=== PATIENT | female | born 1975 | race Caucasian/White ===

== ENCOUNTER → 2016-12-03 | Outpatient (CLI) | payer BC | LOC: RAD 07:24 | PROVIDERS: ATTEND Obstetrics & Gynecology | DX: Z12.31 Encounter for screening mammogram for malignant neoplasm of breast (principal) ==

== ENCOUNTER → 2016-12-10 | Outpatient (CLI) | payer BC | LOC: RAD 08:46 | PROVIDERS: ATTEND Nurse Practitioner Obstetrics & Gynecology | DX: N60.02 Solitary cyst of left breast (principal) | CPT/HCPCS: 76642 ==

== ENCOUNTER → 2017-01-23 | Outpatient (CLI) | payer BC ==
[~2017-01-23] MED LIST: ALBU8CC IH; ALLERGRA; AZIT250T81 PO; CEFD300C PO; ESCI10TA PO; FAMO40TA72 PO; GLUC100016 PO; MULT-954 PO; NITR100C3 PO; OMEP20CA6 PO; PRED10TA PO; TRIA10.8 NS; TRM50T PO; [UNRECOGNIZED DRUG - OTHER] PO; celexa; primrose oil; probiotics; spironolactone
[2017-01-23 11:40] VITALS: BP 108/73
--- NOTE | 2017-01-23 11:40 | Urgent Care T Sheet Gen (E) ---
Intake General Temperature (Fahrenheit): 99.1 Pulse: 64 Blood Pressure Systolic: 108 Blood Pressure Diastolic: 73 Respirations: 18 SPO2: 97 Description of Symptoms Patient presents with possible UTI. Started as LBP and dysuria approx 4 days ago. Symptoms are worsening. No fever. Took some ibuprofen. Patient denies any history of UTI. States she had a bladder tie-up last year and her doctor said she may be more prone following surgery. History of Present Illness Allergies: Coded Allergies: meloxicam (Verified Allergy, Unknown, 06/07/15) Uncoded Allergies: SULFA (Allergy, Unknown, 06/07/15) Home Meds Active Scripts Prednisone 10 Mg Dbrudf84 Mg PO DAILY #14 TAB 40 mg daily x 2 days, then 20 mg daily x 2 days, then 10 mg daily x 2 days Prov:CYRUS PATEL MD 07/22/16 Reported Medications Cefdinir 300 Mg [id number] Mg PO UD Infection Ref 0 07/22/16 Tramadol HCl 50 Mg Zrweoh63 Mg PO UD 06/07/15 Albuterol Sulfate (Ventolin HFA)90 Mcg/1 Puff Hfa.aer.ad90 Mcg IH QID 06/07/15 Omeprazole (Prilosec)20 Mg Capsule.dr20 Mg PO DAILY 06/07/15 Famotidine (Pepcid)40 Mg Dqroua14 Mg PO DAILY 06/07/15 Triamcinolone Acetonide (Nasacort)10.8 Ml Spray10.8 Ml NS DAILY 06/07/15 [probiotics] No Conflict Check 04/07/15 [primrose oil] No Conflict Check 04/07/15 Glucosamine Sulfate 2KCL (Glucosamine)1,000 Mg Tablet1,000 Mg PO DAILY 04/07/15 Multivitamin (Multi Vitamin Daily)1 Each Tablet1 Each PO DAILY 04/07/15 Escitalopram Oxalate (Lexapro)10 Mg Oqnird96 Mg PO DAILY 04/07/15 [allergra] No Conflict Check 11/24/13 Respiratory Constitutional Symptoms: No syptoms reported EENTM: No symptoms reported Respiratory: No symptoms reported Genitourinary: No Discharge present, Dysuria Decreased output Frequency Musculoskeletal: Back pain All Other Systems Reviewed Remaining Systems: All other systems reviewed with negative findings Past Jzvcvjg-Ewwwrl-Ficiqz Hx Patient's Social History Alcohol Use: Occasionally Uses Smoking Status: Former smoker Recent foreign travel: No Surgeries/Hospitalizations Hospitalization/Surgery Hx: Tonsilectomy uterine ablasion Lens Implants Both eyes HYSTERECTOMY 07/2014 LEFT KNEE ARTHROSCOPY bilat cataracts Respiratory Respiratory History: Asthma Comment: Allergy induced Cardiovascular Cardiovascular History: Chest Pain, Other, see comment Comment: SVT Neuro/Muscular Neuro/Muscular History: Headache Reproductive System Sexually Transmitted Diseases: No Genitouinary Genitourinary History: None Gastrointestinal GI/Endocrine History: Thyroid disorder, Abdominal pain Comment: hoshimotos Diabetes Diabetes: No HEENT Impaired Vision: None Hearing Impaired: None Integumentary Integumentary History: None Cancer History of Cancer?: No Psychosocial Behavior Disorders: Anxiety Physical Exam Physical Exam General Appearance: WD/WN No apparent distress Respiratory Exam: Lungs clear Normal breath sounds Cardiovascular Exam: Regular rate, rhythm GI/ Exam: Tenderness (suprapubic) Back Exam: No CVA tenderness Progress/Orders Lab Results Labs Results: UA UA Lab Results ph 6.0 Specific [place] 1.010 Protein - Ketones - Blood 3+ Nitrates - Leukocyte Esterase 3+ Departure Urgent Care Impression Impression: Primary Impression: UTI (urinary tract infection) Qualified Code: N30.01 - Acute cystitis with hematuria Departure Disposition: HOME OR SELF-CARE Condition: Stable Referrals: TALI ANGEL MD (PCP) Additional Instructions: I have started the patient on Macrobid for treatment Push fluids. I have sent her urine out for culture and will call once results are known. Return as needed or if symptoms don't improve Patient understands DC instructions. All questions were answered. Scripts Nitrofurantoin Monohyd/M-Cryst (Macrobid 100 mg Capsule)100 Mg [id number] Mg PO BID Infection #14 CAP Ref 0 Prov:FRANCIS KUMAR 01/23/17 End of report . FRANCIS KUMAR Jan 23, 2017 11:40
--- NOTE | 2017-01-27 10:11 | Urgent Care Follow Up Note (E) ---
Urgent Care Follow Up Note Urine culture showed "no growth" Continue Macrobid as prescribed. Scripts Nitrofurantoin Monohyd/M-Cryst (Macrobid 100 mg Capsule)100 Mg Lqywhti586 Mg PO BID Infection #14 CAP Ref 0 Prov:FRANCIS KUMAR 01/23/17 FRANCIS KUMAR Jan 27, 2017 10:10
== END ==
LOC: MHUC 11:18
PROVIDERS: ATTEND Physician Assistant
DX: N30.01 Acute cystitis with hematuria (principal)
CPT/HCPCS: 81002; 99213